=== PATIENT | female | born 1980 | race African-American/Black ===

== ENCOUNTER 2024-12-27 04:10 | Inpatient (IN) | payer OTHER ==
[~2024-12-27] VITALS: Ht 172.7 cm; Wt 69.9 kg
[~2024-12-27 04:10] MED LIST: LEVE1000 MT
[2024-12-27] MEDS: LEVETIRACETAM 1000MG PREMIX 100 ML IV ONE (05:42)
[2024-12-27] MEDS ORDERED: LORA-249 PO (06:08)
[2024-12-27] MEDS ORDERED: LEVE750T83 PO (06:08)
[2024-12-27] MEDS ORDERED: LEVE750T83 MT (06:08)
[2024-12-27] MEDS ORDERED: FOLI0.4T6 MT (06:10)
[2024-12-27] MEDS ORDERED: TOPI-253 MT (06:10)
[2024-12-27] MEDS ORDERED: LAMO100T65 MT (06:11)
[2024-12-27 06:24] LABS: BASOPHILS % 0.4 % (0.0-2.0); EOSINOPHILS % 2.1 % (0.0-5.0); HEMATOCRIT. 30.4 % (36.0-48.0); HEMOGLOBIN. 9.9 g/dL (12.0-16.0); LYMPHOCYTES % 65.6 % (20.0-50.0); MEAN PLATELET VOLUME 7.6 fl (7.4-10.4); MONOCYTES % 6.9 % (2.0-8.0); NEUTROPHILS % 25.0 % (40.0-76.0); PLATELET 319 x1000/uL (130-400); RED BLOOD CELL COUNT 3.33 mill/uL (4.2-5.4); RED CELL DISTRIBUTION WIDTH 15.3 % (11.6-14.6)
[2024-12-27 06:46] LABS: CREATININE 0.6 mg/dL (0.6-1.0); ETHANOL BLOOD < 10 mg/dL (<10); TROPONIN I HIGH SENSITIVITY < 4 ng/L (3.0-34); UREA NITROGEN BLOOD 9 mg/dL (9-23)
[2024-12-27] MEDS: ACETAMINOPHEN 325MG TABLET PO ONE (06:55)
[2024-12-27 07:17] LABS: HCG SCREEN NEGATIVE
[2024-12-27] MEDS: MORPHINE SULFATE 4 MG/ML INJ (FOR IV/IM USE) IV ONE (08:15)
[2024-12-27] MEDS: ACETAMINOPHEN 1000MG/100ML 100 ML IV ONE (10:48)
[2024-12-27 10:51] LABS: CLARITY URINE CLEAR (CLEAR); COLOR URINE YELLOW (YELLOW); GLUCOSE URINE NEGATIVE (NEGATIVE); KETONES URINE NEGATIVE (NEGATIVE); LEUKOCYTE ESTERASE URINE TRACE (NEGATIVE); NITRITE URINE POSITIVE (NEGATIVE); OCCULT BLOOD URINE NEGATIVE (NEGATIVE); PH URINE 7.5 (4.5-8.0); PROTEIN URINE NEGATIVE (NEGATIVE); SPECIFIC GRAVITY URINE 1.011 (1.005-1.030); UROBILINOGEN URINE 1.0 E.U./dL (0.2-1.0)
[2024-12-27 11:06] LABS: SQUAMOUS EPITHELIAL CELL URINE 2+ /lpf (RARE/1+)
[2024-12-27 11:07] LABS: BACTERIA URINE 4+; RBC URINE 0-2 /hpf (0-2); WBC URINE 0-2 /hpf (0-2)
[2024-12-27 11:17] LABS: *AMPHETAMINES SCREEN URINE NEGATIVE (NEGATIVE); *BARBITURATES SCREEN URINE NEGATIVE (NEGATIVE); *BENZODIAZEPINES SCREEN URINE PRESUMPTIVE POSITIVE (NEGATIVE); *COCAINE SCREEN URINE NEGATIVE (NEGATIVE); CANNABINOID URINE SCREEN NEGATIVE (NEGATIVE); ECSTASY MDMA SCREEN URINE NEGATIVE (NEGATIVE); METHADONE URINE SCREEN NEGATIVE (NEGATIVE); OPIATES URINE SCREEN NEGATIVE (NEGATIVE); PHENCYCLIDINE URINE SCREEN NEGATIVE (NEGATIVE)
[2024-12-27 12:00] VITALS: BP 121/78; PULSE 66; RESP 16; TEMP 36.6; O2SAT 95
[2024-12-27] MEDS ORDERED: OXYC1TAB12 MT (12:11)
[2024-12-27] MEDS ORDERED: ALPR-341 PO (12:12)
[2024-12-27] MEDS ORDERED: MEDR10TA11 PO (12:14)
[2024-12-27] MEDS ORDERED: SERT-112 PO (12:15)
[2024-12-27] MEDS ORDERED: ONDANSETRON HCL 4MG/2ML INJ IV PRN (13:15)
[2024-12-27] MEDS ORDERED: ACETAMINOPHEN 325MG TABLET PO PRN ×2 (13:15)
[2024-12-27] MEDS ORDERED: IPRATROPIUM/ALBUTEROL 0.5-3(2.5)MG/3ML NEB HHN PRN (13:15)
[2024-12-27] MEDS ORDERED: DOCUSATE SODIUM 100MG CAPSULE PO PRN (13:15)
[2024-12-27] MEDS ORDERED: LEVETIRACETAM 500 MG in SODIUM CHLORIDE 0.9% 100 ML IV SCH (13:15)
[2024-12-27] MEDS ORDERED: CLONIDINE 0.1MG TABLET PO PRN (13:15)
[2024-12-27] MEDS ORDERED: IRON200V IV (13:44)
[2024-12-27] MEDS ORDERED: DIPH25TA24 PO (13:45)
[2024-12-27] MEDS ORDERED: HYDR4TAB56 PO (13:47)
[2024-12-27] MEDS: PANTOPRAZOLE SODIUM 40 MG/VIAL IV SCH (13:52)
[2024-12-27] MEDS: CEFTRIAXONE 1GM/50ML 50 ML IV SCH (13:53)
[2024-12-27 14:58] VITALS: BP 121/78; PULSE 66; RESP 16; TEMP 36.6
[2024-12-27 16:00] VITALS: BP 105/56; PULSE 84; RESP 16; TEMP 36.3; O2SAT 96
[2024-12-27 20:00] VITALS: BP 111/76; PULSE 81; RESP 18; TEMP 35.4; O2SAT 100
[2024-12-27] MEDS ORDERED: LEVETIRACETAM 5MG/ML SYR IV SCH (21:00)
[2024-12-27] MEDS ORDERED: LEVETIRACETAM 500MG PREMIX 100ML IV SCH (21:00)
[2024-12-27] MEDS: LEVETIRACETAM 750 MG in SODIUM CHLORIDE 0.9% 100 ML IV SCH (21:14)
[2024-12-27] MEDS: LAMOTRIGINE 100MG TABLET PO SCH (21:14)
[2024-12-28] MEDS ORDERED: NALOXONE HCL 0.4MG/ML VIAL IV PRN (02:00)
[2024-12-28 02:27] LABS: CREATINE KINASE MB FRACTION 1.2 ng/mL (0.5-3.6)
[2024-12-28 02:28] LABS: TROPONIN I HIGH SENSITIVITY < 4 ng/L (3.0-34)
[2024-12-28 04:00] VITALS: BP 117/61; PULSE 81; RESP 18; TEMP 36.5; O2SAT 99
[2024-12-28] MEDS: LORAZEPAM 2MG/ML UD SYRINGE IV PRN (06:30)
[2024-12-28] MEDS: OXYCODONE HCL/ACETAMINOPHEN 5/325MG TABLET PO PRN (06:30)
[2024-12-28 08:00] VITALS: BP 118/75; PULSE 86; RESP 18; TEMP 36.7; O2SAT 97
[2024-12-28] MEDS: TOPIRAMATE 100MG TABLET PO SCH (08:31)
[2024-12-28] MEDS: SERTRALINE HCL 100MG TABLET PO SCH (08:31)
[2024-12-28] MEDS: FOLIC ACID 1MG TABLET PO SCH (08:32)
[2024-12-28] MEDS ORDERED: LAMOTRIGINE 100MG TABLET PO SCH (09:00)
[2024-12-28 12:00] VITALS: BP 122/78; PULSE 85; RESP 18; TEMP 36.8; O2SAT 98
[2024-12-28] MEDS: HYDROMORPHONE HCL/PF 1MG/ML INJ IV PRN (13:08)
[2024-12-28] MEDS ORDERED: IOHEXOL-350 100 ML BOTTLE ONE (13:58)
[2024-12-28 16:00] VITALS: BP 118/68; PULSE 88; RESP 16; TEMP 36.7; O2SAT 98
[2024-12-28] MEDS: OXYCODONE HCL 5MG TABLET PO PRN (18:42)
[2024-12-28 20:00] VITALS: BP 135/84; PULSE 75; RESP 16; TEMP 37.1; O2SAT 96
[2024-12-28] MEDS: LEVETIRACETAM 500MG TABLET PO SCH (21:54)
[2024-12-28] MEDS: DIPHENHYDRAMINE 25MG CAPSULE PO PRN (21:55)
[2024-12-29] VITALS: BP 126/79; PULSE 68; RESP 16; TEMP 36.7; O2SAT 94
[2024-12-29 04:00] VITALS: BP 97/53; PULSE 68; RESP 16; TEMP 36.3; O2SAT 97
[2024-12-29 08:00] VITALS: BP 105/58; PULSE 65; RESP 18; RESP 20; TEMP 36.4; O2SAT 100
[2024-12-29 08:40] LABS: CREATININE 1.2 mg/dL (0.6-1.0); UREA NITROGEN BLOOD 14 mg/dL (9-23)
[2024-12-29 08:42] LABS: ASPARTATE AMINOTRANSFERASE 15 IU/L (<34); BILIRUBIN TOTAL 0.2 mg/dL (0.1-1.0); PROTEIN TOTAL 5.7 g/dL (6.0-8.3)
[2024-12-29 08:43] LABS: BASOPHILS % 0.3 % (0.0-2.0); EOSINOPHILS % 2.6 % (0.0-5.0); HEMATOCRIT. 31.7 % (36.0-48.0); HEMOGLOBIN. 10.2 g/dL (12.0-16.0); LYMPHOCYTES % 47.5 % (20.0-50.0); MEAN PLATELET VOLUME 7.7 fl (7.4-10.4); MONOCYTES % 3.9 % (2.0-8.0); NEUTROPHILS % 45.7 % (40.0-76.0); PLATELET 342 x1000/uL (130-400); RED BLOOD CELL COUNT 3.43 mill/uL (4.2-5.4); RED CELL DISTRIBUTION WIDTH 15.2 % (11.6-14.6)
[2024-12-29 12:00] VITALS: BP 112/64; PULSE 72; RESP 20; TEMP 36.4; O2SAT 100
[2024-12-29 12:41] VITALS: RESP 20
[2024-12-29 14:44] VITALS: BP 112/64; PULSE 72; TEMP 97.6; O2SAT 100
== END 2024-12-29 18:57 | disposition home or self-care (01) | DRG 53 ==
LOC: ER 04:10 → 5WST 09:51 → ENRESERV 10:27
PROVIDERS: ADMIT Internal Medicine; ATTEND Internal Medicine
DX: G40.909 Epilepsy, unspecified, not intractable, without status epilepticus (principal); D64.9 Anemia, unspecified; N39.0 Urinary tract infection, site not specified; D72.819 Decreased white blood cell count, unspecified; G89.4 Chronic pain syndrome; M47.812 Spondylosis without myelopathy or radiculopathy, cervical region; M47.816 Spondylosis without myelopathy or radiculopathy, lumbar region; M50.30 Other cervical disc degeneration, unspecified cervical region; F11.20 Opioid dependence, uncomplicated; M51.360 Other intervertebral disc degeneration, lumbar region with discogenic back pain only; R26.9 Unspecified abnormalities of gait and mobility; R13.10 Dysphagia, unspecified; Z85.028 Personal history of other malignant neoplasm of stomach; Z86.718 Personal history of other venous thrombosis and embolism; Z88.5 Allergy status to narcotic agent; Z92.21 Personal history of antineoplastic chemotherapy; Z92.3 Personal history of irradiation; Z85.89 Personal history of malignant neoplasm of other organs and systems
CPT/HCPCS: 36415; 71046; 71275; 80048; 80053; 80305; 80320; 81003; 82550; 82553; 84484; 84703; 85025; 85379; 93005; 93970; 93971; 96365; 96367; 97166; 99285; A4606; J0696; J1171; J1642; J1953; J2060; J2270; J2470; J7050; Q0163; Q9967; G0480; J0131